=== PATIENT | female | born 2000 | race Caucasian/White ===

== ENCOUNTER → 2021-02-19 | Outpatient (CLI) | payer OTHER | LOC: ZCOL.LAB 16:38 | DX: L02.224 Furuncle of groin (principal) ==

== ENCOUNTER → 2022-01-03 | Outpatient (CLI) | payer OTHER | LOC: COL.RAD 14:57 | DX: R10.31 Right lower quadrant pain (principal); Z97.5 Presence of (intrauterine) contraceptive device | CPT/HCPCS: Q9967 ==

== ENCOUNTER 2022-06-30 15:51 | Emergency (ER) | payer OTHER ==
[~2022-06-30] VITALS: Ht 175.3 cm; Wt 64.5 kg
[2022-06-30 15:59] VITALS: TEMP 98.3
[2022-06-30 16:46] VITALS: BP 113/68; PULSE 69
== END 2022-06-30 16:48 | disposition home or self-care (01) ==
LOC: COL.ER 15:51
DX: S81.012A Laceration without foreign body, left knee, initial encounter (principal); W22.8XXA Striking against or struck by other objects, initial encounter